=== PATIENT | male | born 1945 | race Caucasian/White ===

== ENCOUNTER 2020-07-06 15:16 | Outpatient (REF) | payer OTHER, SELFPAY ==
--- NOTE | 2020-07-06 15:30 | CT_ITS ---
EXAMINATION: CT HEAD WITHOUT CONTRAST CLINICAL INFORMATION: Alzheimer's disease. COMPARISON: None available. TECHNIQUE: Contiguous axial imaging was performed from the skull base to vertex without intravenous administration of contrast. This CT examination was performed using dose optimization techniques as appropriate, variously including the following: *Automated exposure control. *Adjustment of mA and/or kV according to patient size (this includes techniques or standardized protocols for targeted exams where dose is matched to indication/reason for exam; i.e. extremities or head). *Use of iterative reconstruction technique. DLP: 844 mGy-cm FINDINGS: There is no evidence of acute intracranial hemorrhage or edematous territorial infarction. Scattered hypoattenuation in the periventricular and deep white matter are consistent with moderate microangiopathy. Taet-white matter differentiation is preserved. There is a degree of concomitant ventricular and extraventricular subarachnoid space enlargement; however, the ventricles may be disproportionately prominent when compared to the sulcal spaces. Temporal horns of the lateral ventricles are enlarged. The third ventricle measures 1.4 cm in diameter. The posterior callosal angle is decreased (60 degrees) when measured on a corrected coronal image, orthogonal to the anterior commissure-posterior commissure line. Qualitatively, frontotemporal cerebral volume loss appears more prominent than volume loss in the occipitoparietal lobes. No abnormal mass effect or midline shift. No extra-axial fluid collections. No acute soft tissue or osseous abnormalities. Mild mucosal thickening of the paranasal sinuses with small mucous retention cyst in the bilateral maxillary sinuses. Leftward nasal septal deviation with spurring. The mastoid air cells and middle ear cavities remain well aerated. IMPRESSION: 1. No evidence of acute intracranial hemorrhage or edematous territorial infarction. Moderate underlying microangiopathy. 2. There is a degree of generalized cerebral volume loss without. Qualitatively, there appears to be more volume loss in the frontotemporal lobes then in the occipitoparietal lobes. The ventricles also appear more prominent than the extraventricular CSF spaces. This pattern may be seen with concomitant generalized volume loss and neurodegenerative disorders. However, the posterior callosal angle is also decreased. Recommend exclusion of symptoms of underlying normal pressure hydrocephalus.
== END 2020-07-06 15:17 | disposition home or self-care (01) ==
LOC: HO.CT 15:16
PROVIDERS: PCP Internal Medicine; Visit Provider Psychiatry & Neurology Neurology
DX: G30.9 Alzheimer's disease, unspecified (principal)
CPT/HCPCS: 70450